=== PATIENT | female | born 1960 | race Caucasian/White ===

== ENCOUNTER 2016-11-09 10:24 | Outpatient (CLI) | payer BC ==
[~2016-11-09] VITALS: Ht 157.5 cm; Wt 77.1 kg
[~2016-11-09 10:24] MED LIST: FLIN1CHW PO; METO1TAB32 PO; NOVOINJ3 SQ; PERC5TAB8 OR; PERC7.5T8 OR; TRES1INJ2 SQ; VITA500046 PO
[2016-11-09] MEDS ORDERED: NS 1,000 ML IV ONE (10:30)
[2016-11-09] MEDS ORDERED: LIDOCAINE 2% INJ 100 MG/5 ML SDV (FOR ANES.) As Ordered ONE (11:53)
[2016-11-09] MEDS ORDERED: PROPOFOL 200 MG/20 ML VIAL As Ordered ONE ×2 (11:53→12:00)
--- NOTE | 2016-11-09 12:16 | ROOR ---
Patient Name: Morena Palmer Procedure Date: 11/09/2016 11:52 AM Date of : 1960 Age: 56 Room: [facility] Gender: Female Note Status: Finalized Procedure: Colonoscopy Indications: High risk colon cancer surveillance: Personal history of colonic polyps, Last colonoscopy: August 2013 Providers: Chai SANDERS MD Referring MD: Hung Begum MD Requesting Provider: Medicines: Monitored Anesthesia Care Complications: No immediate complications. Procedure: Pre-Anesthesia Assessment: - The heart rate, respiratory rate, oxygen saturations, blood pressure, adequacy of pulmonary ventilation, and response to care were monitored throughout the procedure. The Colonoscope was introduced through the anus and advanced to the cecum, identified by appendiceal orifice and ileocecal valve. The colonoscopy was performed without difficulty. The patient tolerated the procedure well. The quality of the bowel preparation was good. Findings: The perianal and digital rectal examinations were normal. Two sessile polyps were found in the descending colon and cecum. The polyps were diminutive in size. These polyps were removed with a jumbo cold forceps. Resection and retrieval were complete. The exam was otherwise without abnormality on direct and retroflexion views. The colon (entire examined portion) was redundant. Impression: - Two diminutive polyps in the descending colon and in the cecum, removed with a jumbo cold forceps. Resected and retrieved. - The examination was otherwise normal on direct and retroflexion views. Recommendation: - Repeat colonoscopy in 5 years for surveillance. Chai Sanders MD Chai SANDERS MD 11/09/2016 12:15:42 PM This report has been signed electronically. Number of Addenda: 0 Note Initiated On: 11/09/2016 11:52 AM Estimated Blood Loss: Estimated blood loss: none.
[2016-11-09 12:30] VITALS: BP 131/74
== END 2016-11-09 12:42 | disposition home or self-care (01) ==
LOC: M OPP 10:24
PROVIDERS: ATTEND Internal Medicine Gastroenterology
DX: Z12.11 Encounter for screening for malignant neoplasm of colon (principal); D12.2 Benign neoplasm of ascending colon; D12.4 Benign neoplasm of descending colon; Q43.8 Other specified congenital malformations of intestine; Z86.010 Personal history of colon polyps; R00.2 Palpitations; E10.9 Type 1 diabetes mellitus without complications; Z78.0 Asymptomatic menopausal state; Z79.899 Other long term (current) drug therapy; Z79.4 Long term (current) use of insulin; Z80.3 Family history of malignant neoplasm of breast; Z80.42 Family history of malignant neoplasm of prostate

== ENCOUNTER → 2019-02-13 | Outpatient (REF) | payer BC ==
[2019-02-17 14:07] LABS: HPV HYBRID CAPTURE II Negative (Negative)
== END ==
LOC: M SFHCWAGY 10:39
PROVIDERS: ATTEND Nurse Practitioner Family
DX: Z12.4 Encounter for screening for malignant neoplasm of cervix (principal)
CPT/HCPCS: 87624; G0123

== ENCOUNTER → 2022-02-19 | Outpatient (REF) | payer OTHER | LOC: M SFHCWAGY 13:16 | PROVIDERS: ATTEND Nurse Practitioner Family | DX: Z12.4 Encounter for screening for malignant neoplasm of cervix (principal); Z01.419 Encounter for gynecological examination (general) (routine) without abnormal findings; Z77.9 Other contact with and (suspected) exposures hazardous to health ==

== ENCOUNTER 2022-09-21 07:18 | Day surgery (SDC) | payer OTHER ==
[~2022-09-21] VITALS: Ht 157.5 cm; Wt 74.3 kg
[~2022-09-21 07:18] MED LIST changes: +CALCCAP4 PO; +INSUH10VL SC; +METF-838 PO; +NS 1,000 ML IV ONE; +RA N1TAB PO; +VITA100093 PO
[2022-09-21] MEDS ORDERED: propofoL 200 MG/20 ML VIAL As Ordered ONE ×2 (08:32→08:42)
[2022-09-21] MEDS ORDERED: LIDOCAINE 2% 100MG/5ML SDV (FOR ANES.) As Ordered ONE (08:32)
[2022-09-21] MEDS ORDERED: GLYCOPYRROLATE INJ 0.2 MG/ML 2 ML VIAL As Ordered ONE (08:32)
[2022-09-21 09:25] VITALS: BP 145/70; TEMP 98.1; O2SAT 98
== END 2022-09-21 09:29 | disposition home or self-care (01) ==
LOC: M OPP 07:18
PROVIDERS: ATTEND Internal Medicine Gastroenterology
DX: Z12.11 Encounter for screening for malignant neoplasm of colon (principal); Z86.010 Personal history of colon polyps; D12.0 Benign neoplasm of cecum; D12.3 Benign neoplasm of transverse colon; Z79.4 Long term (current) use of insulin; Z79.51 Long term (current) use of inhaled steroids; Z79.84 Long term (current) use of oral hypoglycemic drugs; Z79.899 Other long term (current) drug therapy